=== PATIENT | male | born 1965 | race Caucasian/White ===

== ENCOUNTER 2016-07-29 18:03 | Emergency (ER) | payer OTHER ==
[2016-07-29 19:15] VITALS: BP 139/87
--- NOTE | 2016-07-29 19:31 | UC ---
General HPI - HPI Summary HPI Summary: Patient had an injury at work over the summer, he was evaluated at that point and no fractures or dislocation of the bones noted. he now has had longstanding right sided neck pain. feels his neck cracks frequently. - History of Current Complaint Chief Complaint: UCBackPain Stated Complaint: NECK PAIN Time Seen by Provider: 07/29/16 19:14 Hx Obtained From: Patient Onset/Duration: Gradual Onset, Still Present Timing: Constant Onset Severity: Moderate Current Severity: Moderate Pain Intensity: 6 Pain Location at: right side of neck and posterior neck - Allergy/Home Medications Allergies/Adverse Reactions: Allergies Allergy/AdvReac Type Severity Reaction Status Date / Time No Known Allergies Allergy Verified 07/29/16 19:15 Home Medications: Home Medications Varenicline Tartrate [Chantix Starting M... 0.5 mg X 11 & 1 mg X 42] 1 yadira PO DAILY 07/29/16 [History Confirmed 07/29/16] PMH/Surg Hx/FS Hx/Imm Hx Previously Healthy: Yes Endocrine History Of: Denies: Diabetes Cardiovascular History Of: Denies: Hypertension, Pacemaker/ICD GI/ History Of: Denies: Renal Disease Cancer History Of: Denies: Lung Cancer, Colorectal Cancer, Breast Cancer, Prostate Cancer, Cervical Cancer - Surgical History Surgical History: Yes Surgery Procedure, Year, and Place: left shoulder 2009, [facility] [place],. right knee/femur rodding 1981, , [facility] [facility] APPENDECTOMY, 1977, [facility]. Left Index Finger Tumor Removed, 07/16/12, [facility] [place]. LEFT INDEX FINGER END REMOVED= 07/25/2013 - Family History Known Family History: Positive: Hypertension, Diabetes - Social History Alcohol Use: Occasionally Substance Use Type: None Smoking Status (MU): Heavy Every Day Tobacco Smoker Type: Cigarettes Amount Used/How Often: 1 PPD X 25 YEARS When Did the Patient Quit Smoking/Using Tobacco: 07/2013 Review of Systems Constitutional: Negative Skin: Negative Eyes: Negative ENT: Negative Respiratory: Negative Cardiovascular: Negative Gastrointestinal: Negative Genitourinary: Negative Motor: Negative Neurovascular: Negative Musculoskeletal: Arthralgia, Decreased ROM, Myalgia Neurological: Negative Psychological: Negative All Other Systems Reviewed And Are Negative: Yes Physical Exam Triage Information Reviewed: Yes Appearance: Well-Appearing, Well-Nourished, Pain Distress Vital Signs: Initial Vital Signs Temp 98.2 F 07/29/16 19:11 Pulse 71 07/29/16 19:11 Resp 16 07/29/16 19:11 BP 139/87 07/29/16 19:11 Pulse Ox 97 07/29/16 19:11 Vital Signs Reviewed: Yes Eye Exam: Normal Eyes: Positive: Conjunctiva Clear ENT Exam: Normal ENT: Positive: Normal ENT inspection, Pharynx normal, TMs normal Dental Exam: Normal Neck exam: Normal Neck: Positive: Supple, Nontender, Tenderness @ - right erector spinae and scalenes Respiratory Exam: Normal Respiratory: Positive: Chest non-tender, Lungs clear, Normal breath sounds Cardiovascular Exam: Normal Cardiovascular: Positive: RRR, No Murmur, Pulses Normal Abdominal Exam: Normal Abdomen Description: Positive: Nontender, No Organomegaly, Soft Bowel Sounds: Positive: Present Musculoskeletal Exam: Normal Musculoskeletal: Positive: Strength Intact, ROM Intact, No Edema Neurological Exam: Normal Neurological: Positive: Alert, Muscle Tone Normal Psychological Exam: Normal Skin Exam: Normal Course/Dx - Course Course Of Treatment: hx obtained, exam performed, xray obtained - Differential Dx - Multi-Symptom Provider Diagnoses: chronic neck pain. DJD Discharge - Discharge Plan Condition: Stable Disposition: HOME Prescriptions: Cyclobenzaprine TAB* [Flexeril TAB*] 10 mg PO BEDTIME #30 tab Patient Education Materials: Chronic Neck Pain (GEN) Referrals: Lobito Huertas MD [Primary Care Provider] - Fidel Ernst DC [Doctor of Chiropractic] - Candido Benz DC [Doctor of Chiropractic] - Additional Instructions: I recommend follow up with A massage therpist or physical therapy [facility] to relief the pain in the neck.
--- NOTE | 2016-07-29 20:05 | RAD ---
INDICATION: Chronic neck pain since a fall October 2015 COMPARISON: CT cervical spine November 21, 2015 TECHNIQUE: 3 views of the cervical spine were obtained. FINDINGS: C1-C7 are visualized. Degenerative changes of the cervical spine on the sagittal view images includes loss of intervertebral disc height and anterior marginal osteophyte formation at C6/C7 and C7/T1. No prevertebral soft tissue swelling or fracture is seen. Disc spaces appear maintained. IMPRESSION: Moderate degenerative changes of the cervical spine similar to the appearance of the CT dated November 21, 2015 If the patient's symptoms persist, follow-up imaging is recommended.
== END 2016-07-29 20:20 | disposition home or self-care (01) ==
LOC: UCCORT 18:03
DX: M54.2 Cervicalgia (principal); M50.30 Other cervical disc degeneration, unspecified cervical region; F17.210 Nicotine dependence, cigarettes, uncomplicated
CPT/HCPCS: 72040; 99212; G0463

== ENCOUNTER 2017-11-14 09:08 | Emergency (ER) | payer BC ==
[2017-11-14 09:24] VITALS: BP 140/100
[2017-11-14] MEDS ORDERED: Tetracaine 0.5% OPTH.SOL 4 ML* 1 DROP BTL ONE (09:29)
[2017-11-14] MEDS ORDERED: Fluorescein Sod TOPICAL 0.6* 0.6 MG TEST OPHTHALMIC ONE ×2 (09:29→09:31)
[2017-11-14] MEDS ORDERED: BSS OPTH.SOL* BTL ONE (09:29)
--- NOTE | 2017-11-14 09:44 | UC ---
Eye Complaint HPI - HPI Summary HPI Summary: Had a spark from grinding go into left eye 2 days ago, not wearing safety glasses. Yesterday hit cement block and chip hit the eye. Used an eye flush last night and eye was swollen shut this morning. - History of Current Complaint Chief Complaint: UCEye Stated Complaint: LFT EYE COMPLAINT Time Seen by Provider: 11/14/17 09:30 Hx Obtained From: Patient Onset/Duration: Sudden Onset, Lasting Days - 2, Worse Since - this morning Timing: Constant Severity Initially: Mild Severity Currently: Moderate Pain Intensity: 6 Location of Injury: Conjunctiva, Eye Lid (lower) Character: Dull Aggravating Factor(s): Blinking Alleviating Factor(s): Nothing Associated Signs And Symptoms: Positive: Swelling - Risk Factors Penetrating Injury Risk Factor: Hammering, Grinding - Allergies/Home Medications Allergies/Adverse Reactions: Allergies Allergy/AdvReac Type Severity Reaction Status Date / Time No Known Allergies Allergy Verified 11/14/17 09:18 PMH/Surg Hx/FS Hx/Imm Hx Previously Healthy: Yes - Surgical History Surgical History: Yes Surgery Procedure, Year, and Place: left shoulder 2009, [facility] [place],. right knee/femur rodding 1981, , [facility]. APPENDECTOMY, 1977, [facility]. Left Index Finger Tumor Removed, 07/16/12, [facility] [place]. LEFT INDEX FINGER END REMOVED= 07/25/2013. [facility] - Family History Known Family History: Positive: Hypertension, Diabetes - Social History Occupation: Employed Full-time Lives: With Family Alcohol Use: Occasionally Substance Use Type: None Smoking Status (MU): Heavy Every Day Tobacco Smoker Type: Cigarettes Amount Used/How Often: 1/2 PPD X 25 YEARS Have You Smoked in the Last Year: No When Did the Patient Quit Smoking/Using Tobacco: 07/2013 Review of Systems Eyes: Eye Redness Is Patient Immunocompromised?: No All Other Systems Reviewed And Are Negative: Yes Physical Exam Triage Information Reviewed: Yes Appearance: Well-Appearing, Well-Nourished, Pain Distress - mild Vital Signs: Initial Vital Signs Temp 98.3 F 11/14/17 09:19 Pulse 64 11/14/17 09:19 Resp 18 11/14/17 09:19 BP 140/100 11/14/17 09:19 Pulse Ox 97 11/14/17 09:19 Vital Signs Reviewed: Yes Eyes: Positive: Conjunctiva Inflamed - OS, Other: - left lower lid swollen, red , tender medially. ENT: Positive: Pharynx normal, TMs normal Neck exam: Normal Respiratory Exam: Normal Cardiovascular Exam: Normal Musculoskeletal Exam: Normal Neurological Exam: Normal Psychological Exam: Normal Skin: Positive: Other - erythema with swelling down the left cheek Eye Complaint Course/Dx - Differential Dx/Diagnosis Differential Diagnosis/HQI/PQRI: Conjunctivitis, Corneal Abrasion, Periorbital Cellulitis Provider Diagnoses: Left lower eyelid hordoleum. Cellulitis face Discharge - Sign-Out/Discharge Documenting (check all that apply): Discharge - Discharge Plan Condition: Stable Disposition: HOME Prescriptions: Cephalexin CAP* [Keflex 500 CAP*] 500 mg PO QID #28 cap Erythromycin OPTH OINT* [Erythromycin 0.5% OPTH OINT*] 0.25 inch LEFT EYE TID # 1 tube Patient Education Materials: Stye (ED), Cellulitis (ED) Referrals: Lobito Huertas MD [Primary Care Provider] - Additional Instructions: Smoking Cessation Tricks. 1. Cut down by 1 cigarette per day every 2-3 days. Write the number of smokes for that day on the calendar. 2. Identify triggers to smoking: after meals, on the phone, in the car, with coffee, on breaks at work, etc. 3. Formulate a plan with a behavior to replace the smoking. Fireballs in the car , doodle pad on the phone, flavored creamer for the coffee, go for a walk after a meal or on break at work. 4. For stress smokes do deep breathing relaxation. Breath deep in through the nose hold the breath in for a few seconds then breath out slowly through the mouth. EYE OINTMENT USE: Wash hands. Place 1/4" strip across tip of finger. Pull lower lid down with the index finger and stabilize the ointment finger with the middle finger and scrape the ointment off on the lid. Pull the lid out and let go as you look down. - Billing Disposition and Condition Condition: STABLE Disposition: HOME
== END 2017-11-14 09:58 | disposition home or self-care (01) ==
LOC: UCCORT 09:08
DX: S05.02XA Injury of conjunctiva and corneal abrasion without foreign body, left eye, initial encounter (principal); L03.213 Periorbital cellulitis; W20.8XXA Other cause of strike by thrown, projected or falling object, initial encounter; Y93.89 Activity, other specified; Y92.9 Unspecified place or not applicable; Z87.891 Personal history of nicotine dependence; H10.9 Unspecified conjunctivitis
CPT/HCPCS: 99212; A9270-GY; G0463

== ENCOUNTER 2018-04-25 15:00 | Emergency (ER) | payer BC ==
--- OUTSIDE RECORDS SUMMARY | 2018-04-25 16:28 | XMS REPORT | Continuity of Care Document ---
:1965 External Reference #:[id number] Author Name Lobito Huertas M.D. 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 Active Onset: 07/10/2015 Pain in limb Lobito Huertas M.D. Active Onset: 07/10/2015 Arthralgia of the ankle and/or foot Lobito Huertas M.D. Active Onset: 07/10/2015 Atopic dermatitis Lobito Huertas M.D. Active Onset: 07/10/2015 Allergic rhinitis Lobito Huertas M.D. Active Onset: 07/10/2015 Chronic obstructive lung disease Lobito Huertas M.D. Active Onset: 07/10/2015 Low back pain Lobito Huertas M.D. Active Onset: 07/10/2015 Tobacco user Lobito Huertas M.D. Active Onset: 07/10/2015 Hearing loss Lobito Huertas M.D. Active Family History Date Family Member(s) Problem(s) Comments Father due to Lung Cancer () - AT AGE 74 Mother due to COPD () - AT AGE 76 First Daughter 20 First Daughter No Current Problems Second Daughter 31 Second Daughter No Current Problems Third Daughter 33 Third Daughter No Current Problems First Brother 56 First Brother No Current Problems Second Brother 42 Second Brother No Current Problems First Sister 57 First Sister No Current Problems Second Sister 56 Second Sister No Current Problems Third Sister 54 Third Sister No Current Problems Fourth Sister Heart Issues Fourth Sister 43 Social History Type Date Description Comments Sex Unknown Marital Status Legal Status: ETOH Use Rarely consumes alcohol Tobacco Use Start: Unknown Patient is a current 1 TO 1 1/2 PACKS A DAY smoker, smokes every day Smoking Status Reviewed: 04/14/18 Patient is a current 1 TO 1 1/2 PACKS A DAY smoker, smokes every day Allergies, Adverse Reactions, Alerts Description No Known Drug Allergies Medications Medication Date Status Form Strength Qnty SIG Indications Ordering Provider Viagra Active Tablets 100mg 10tabs 1 tab by J44.9 Lobito Huertas 8 mouth M., M.DRose Mary every day as needed Ibuprofen Active Tablets 800mg 90tabs 1 by mouth M79.604 Lobito Huertas 7 three M., M.D. times a day as needed M25.569 M54.5 Betamethasone 08/31/2015 Active Cream 0.05% 45gm apply to L20.9 Aleksandar Dipropionate affected Lobito Villegas, area three M.D. times a day as needed Hydrocodone-Acet 07/10/2015 Active Tablets 10-325mg 120tabs 1 tab by M79.604 Aleksandar aminophen mouth four Lobito Villegas, times a day M.D. as needed M25.569 M54.5 Prednisone 02/16/20 Hx Tablets 20mg 8tabs 2 tab by mouth J44.9 David Huertasmad 18 - daily 4 days M., M.D. 02/19/20 18 Ciprofloxacin HCL 12/12/19 Hx Tablets 500mg 14tabs 1 by mouth E78.2 Aleksandar, Ahmad 18 - twice a day M., M.D. 12/19/19 18 Chantix 12/12/19 Hx Tablets 1mg 60tabs 1 by mouth F17.210 Aleksandar, Ahmad 18 - twice a day M., M.D. 04/13/20 18 Amoxicillin 09/08/19 Hx Tablets 500mg 40tabs 2 by mouth J44.9 Aleksandar, Ahmad 18 - twice a day M., M.D. 09/18/19 18 Prednisone 09/08/19 Hx Tablets 20mg 8tabs 2 tab by mouth J44.9 Aleksandar, Ahmad 18 - daily 4 days M., M.D. 09/11/19 18 Chantix 08/04/19 Hx Tablets 1mg 60tabs 1 by mouth F17.210 Aleksandar, Ahmad 18 - twice a day M., M.D. 10/03/19 18 Cialis 05/12/20 Hx Tablets 20mg 6tabs 1 tab by mouth J44.9 Aleksandar, Ahmad 17 - every day as M., M.D. 11/18/19 needed 18 Prednisone 05/12/20 Hx Tablets 20mg 18tabs 3 tab by mouth M50.30 Aleksandar , Ahmad 17 - daily 3 days, M., M.D. 05/20/20 then 2 tab 17 daily x 3 d , then 1 tab daily 3d Viagra 01/24/20 Hx Tablets 100mg 5tabs 1 tab by mouth M25.571 Aleksandar, Ahmad 17 - every day as M., M.D. 05/12/20 needed 17 Prednisone 09/30/19 Hx Tablets 20mg 18tabs 3 tab by mouth M50.30 Aleksandar , Ahmad 17 - daily 3 days, M., M.D. 02/01/20 then 2 tab 17 daily x 3 d , then 1 tab daily 3d M54.12 Prednisone 08/07/2016 - Hx Tablets 20mg 18tabs 3 tab by M50.30 Aleksandar, 08/16/2016 mouth daily Ahmad M., 3 days, M.D. then 2 tab daily x 3 d , then 1 tab daily 3d Bacitracin 04/15/2016 - Hx Ointment 500Unit apply to S60.451A [facility], (External) 04/22/2016 /GM affected Ahmad M., area three M.D. times a day as needed till healed Prednisone 03/07/2016 - Hx Tablets 20mg 18tabs 3 tab by M50.30 [facility], 03/16/2016 mouth daily Ahmad M., 3 days, M.D. then 2 tab daily x 3 d , then 1 tab daily 3d Prednisone 10/18/2015 - Hx Tablets 20mg 18tabs 3 tab by M25.569 [facility], 10/25/2015 mouth daily Ahmad M., 3 days, M.D. then 2 tab daily x 3 d , then 1 tab daily 3d Hydrocodone-Acet 07/10/2015 - Hx Tablets 10-325m 60tabs 1-2 tab by [facility], aminophen 07/10/2015 g mouth every Ahmad M., 4 hours as M.D. needed Chantix 07/10/2015 - Hx Tablets 1mg 60tabs 1 by mouth F17.210 [facility], 04/26/2017 twice a day Ahmad M., M.D. Hydrocodone-Acet - Hx Tablets 5-325mg Unknown aminophen 07/10/2015 Naproxen - Hx Tablets 500mg Unknown 07/01/2015 Levofloxacin - Hx Tablets 750mg Unknown 07/02/2015 Tramadol HCL - Hx Tablets 50mg Unknown 06/26/2015 Immunizations CPT Code Status Date Vaccine Lot # [id number] Refused 07/10/2015 Flu Vaccine Vital Signs Date Vital Result Comment 04/15/2018 8:32am BP Systolic 146 mmHg BP Diastolic 78 mmHg Height 67 inches 5'7" Weight 176.00 lb BMI (Body Mass Index) 27.6 kg/m2 Heart Rate 68 /min Respiratory Rate 16 /min 03/16/2018 11:01am BP Systolic 130 mmHg BP Diastolic 70 mmHg Height 67 inches 5'7" Weight 182.00 lb BMI (Body Mass Index) 28.5 kg/m2 02/15/2018 3:27pm BP Systolic 124 mmHg BP Diastolic 60 mmHg Height 67 inches 5'7" Weight 181.00 lb BMI (Body Mass Index) 28.3 kg/m2 Heart Rate 79 /min Respiratory Rate 16 /min 01/15/2018 8:26am BP Systolic 132 mmHg BP Diastolic 70 mmHg Height 67 inches 5'7" Weight 183.00 lb BMI (Body Mass Index) 28.7 kg/m2 Heart Rate 72 /min Respiratory Rate 16 /min 12/11/2017 8:07am BP Systolic 126 mmHg BP Diastolic 80 mmHg Height 67 inches 5'7" Weight 186.00 lb BMI (Body Mass Index) 29.1 kg/m2 Heart Rate 73 /min Respiratory Rate 18 /min 11/17/2017 4:08pm BP Systolic 150 mmHg BP Diastolic 88 mmHg Height 67 inches 5'7" Weight 188.00 lb BMI (Body Mass Index) 29.4 kg/m2 Heart Rate 74 /min Respiratory Rate 18 /min 10/05/2017 9:23am BP Systolic 134 mmHg BP Diastolic 84 mmHg Height 67 inches 5'7" Weight 191.00 lb BMI (Body Mass Index) 29.9 kg/m2 Heart Rate 82 /min Respiratory Rate 18 /min 09/08/2017 4:11pm BP Systolic 128 mmHg BP Diastolic 82 mmHg Height 67 inches 5'7" Weight 191.00 lb BMI (Body Mass Index) 29.9 kg/m2 Heart Rate 78 /min Respiratory Rate 18 /min 08/04/2017 9:08am BP Systolic 130 mmHg BP Diastolic 79 mmHg Height 67 inches 5'7" Weight 187.00 lb BMI (Body Mass Index) 29.3 kg/m2 Heart Rate 59 /min Respiratory Rate 18 /min 07/03/2017 3:58pm BP Systolic 138 mmHg BP Diastolic 72 mmHg Height 67 inches 5'7" Weight 187.00 lb BMI (Body Mass Index) 29.3 kg/m2 Heart Rate 91 /min Respiratory Rate 18 /min 06/05/2017 3:14pm BP Systolic 150 mmHg BP Diastolic 72 mmHg Height 67 inches 5'7" Weight 176.00 lb BMI (Body Mass Index) 27.6 kg/m2 Heart Rate 72 /min Respiratory Rate 18 /min 05/12/2017 4:10pm BP Systolic 144 mmHg BP Diastolic 72 mmHg Height 67 inches 5'7" Weight 176.00 lb BMI (Body Mass Index) 27.6 kg/m2 Heart Rate 64 /min Respiratory Rate 18 /min 04/29/2017 11:38am BP Systolic 136 mmHg BP Diastolic 70 mmHg Height 67 inches 5'7" Weight 178.00 lb BMI (Body Mass Index) 27.9 kg/m2 Heart Rate 70 /min Respiratory Rate 16 /min 04/16/2017 4:32pm BP Systolic 128 mmHg BP Diastolic 68 mmHg Height 67 inches 5'7" Weight 180.00 lb BMI (Body Mass Index) 28.2 kg/m2 Heart Rate 80 /min Respiratory Rate 16 /min 04/03/2017 8:52am BP Systolic 130 mmHg BP Diastolic 80 mmHg Height 67 inches 5'7" Weight 180.00 lb BMI (Body Mass Index) 28.2 kg/m2 Heart Rate 78 /min Respiratory Rate 16 /min 03/18/2017 4:24pm BP Systolic 138 mmHg BP Diastolic 68 mmHg Height 67 inches 5'7" Weight 180.00 lb BMI (Body Mass Index) 28.2 kg/m2 Heart Rate 78 /min Respiratory Rate 16 /min 03/05/2017 8:35am BP Systolic 140 mmHg BP Diastolic 76 mmHg Height 67 inches 5'7" Weight 181.00 lb BMI (Body Mass Index) 28.3 kg/m2 Heart Rate 86 /min Respiratory Rate 16 /min 02/20/2017 4:47pm Height 67 inches 5'7" 02/05/2017 4:26pm BP Systolic 138 mmHg BP Diastolic 70 mmHg Height 67 inches 5'7" Weight 183.00 lb BMI (Body Mass Index) 28.7 kg/m2 Heart Rate 68 /min Respiratory Rate 16 /min 01/23/2017 4:12pm BP Systolic 150 mmHg BP Diastolic 78 mmHg Height 67 inches 5'7" Weight 182.00 lb BMI (Body Mass Index) 28.5 kg/m2 Heart Rate 68 /min Respiratory Rate 16 /min 12/26/2016 4:00pm BP Systolic 130 mmHg BP Diastolic 76 mmHg Height 67 inches 5'7" Weight 166.00 lb BMI (Body Mass Index) 26.0 kg/m2 Heart Rate 86 /min Respiratory Rate 16 /min 12/03/2016 4:33pm BP Systolic 140 mmHg BP Diastolic 84 mmHg Height 67 inches 5'7" Weight 165.00 lb BMI (Body Mass Index) 25.8 kg/m2 Heart Rate 87 /min Respiratory Rate 16 /min 11/04/2016 3:52pm BP Systolic 128 mmHg BP Diastolic 72 mmHg Height 67 inches 5'7" Weight 177.00 lb BMI (Body Mass Index) 27.7 kg/m2 Heart Rate 62 /min Respiratory Rate 18 /min 09/29/2016 3:35pm BP Systolic 136 mmHg BP Diastolic 78 mmHg Height 67 inches 5'7" Weight 176.00 lb BMI (Body Mass Index) 27.6 kg/m2 Heart Rate 67 /min Respiratory Rate 16 /min 09/05/2016 1:59pm BP Systolic 118 mmHg BP Diastolic 78 mmHg Height 67 inches 5'7" Weight 174.00 lb BMI (Body Mass Index) 27.2 kg/m2 Heart Rate 85 /min Respiratory Rate 18 /min 08/07/2016 4:34pm BP Systolic 110 mmHg BP Diastolic 70 mmHg Height 67 inches 5'7" Weight 168.00 lb BMI (Body Mass Index) 26.3 kg/m2 Heart Rate 130 /min Respiratory Rate 18 /min 06/24/2016 4:26pm BP Systolic 13 mmHg BP Diastolic 70 mmHg Height 67 inches 5'7" Weight 165.00 lb BMI (Body Mass Index) 25.8 kg/m2 Heart Rate 82 /min Respiratory Rate 18 /min 05/14/2016 4:23pm BP Systolic 132 mmHg BP Diastolic 80 mmHg Height 67 inches 5'7" Weight 160.00 lb BMI (Body Mass Index) 25.1 kg/m2 Heart Rate 68 /min Respiratory Rate 18 /min 04/15/2016 9:52am BP Systolic 122 mmHg BP Diastolic 64 mmHg Height 67 inches 5'7" Weight 167.00 lb BMI (Body Mass Index) 26.2 kg/m2 Heart Rate 78 /min Respiratory Rate 20 /min 03/07/2016 4:25pm BP Systolic 130 mmHg BP Diastolic 68 mmHg Height 67 inches 5'7" Weight 170.00 lb BMI (Body Mass Index) 26.6 kg/m2 Heart Rate 84 /min Respiratory Rate 20 /min 02/01/2016 3:00pm BP Systolic 142 mmHg BP Diastolic 82 mmHg Height 67 inches 5'7" Weight 168.00 lb BMI (Body Mass Index) 26.3 kg/m2 Heart Rate 78 /min Respiratory Rate 18 /min 01/01/2016 4:31pm BP Systolic 130 mmHg BP Diastolic 78 mmHg Height 67 inches 5'7" Weight 176.00 lb BMI (Body Mass Index) 27.6 kg/m2 Heart Rate 72 /min Respiratory Rate 18 /min 10/18/2015 2:43pm BP Systolic 130 mmHg BP Diastolic 81 mmHg Height 67 inches 5'7" Weight 180.00 lb BMI (Body Mass Index) 28.2 kg/m2 Heart Rate 65 /min Respiratory Rate 18 /min 08/31/2015 3:11pm BP Systolic 113 mmHg BP Diastolic 68 mmHg Height 67 inches 5'7" Weight 172.00 lb BMI (Body Mass Index) 26.9 kg/m2 Heart Rate 64 /min Respiratory Rate 18 /min 07/23/2015 3:00pm BP Systolic 132 mmHg BP Diastolic 83 mmHg Height 67 inches 5'7" Weight 165.00 lb BMI (Body Mass Index) 25.8 kg/m2 Heart Rate 65 /min Respiratory Rate 18 /min 07/10/2015 2:37pm BP Systolic 137 mmHg BP Diastolic 76 mmHg Height 67 inches 5'7" Weight 166.00 lb BMI (Body Mass Index) 26.0 kg/m2 Heart Rate 68 /min Body Temperature 96.3 F Respiratory Rate 20 /min Results Test Date Facility Test Result H/L Range Note Laboratory test 04/15/2018 [facility] TSH, Ultrasenstive <pending> finding 113 [employer] [place] (607)- - Vitamin D 25 Hydroxy <pending> Laboratory test 10/18/2015 [facility] Surgical SEE RESULT 1 finding Pathology BELOW CBC Auto Diff 07/23/2015 [facility] White Blood Count 6.5 10^3/uL 3.5-10. 8 Red Blood Count 4.96 10^6/uL 4.0-5.4 Hemoglobin 14.9 g/dL 14.0-18.0 Hematocrit 45 % 42-52 Mean Corpuscular Volume 91 fL 80-94 Mean Corpuscular Hemoglobin 30 pg 27-31 Mean Corpuscular HGB Conc 33 g/dL 31-36 Red Cell Distribution Width 14 % 10.5-15 Platelet Count 318 10^3/uL 150-450 Mean Platelet Volume 7 um3 Low 7.4-10.4 Abs Neutrophils 3.6 10^3/uL 1.5-7.7 Abs Lymphocytes 2.1 10^3/uL 1.0-4.8 Abs Monocytes 0.5 10^3/uL 0-0.8 Abs Eosinophils 0.2 10^3/uL 0-0.6 Abs Basophils 0.1 10^3/uL 0-0.2 Abs Nucleated RBC 0 10^3/uL Granulocyte % 55.7 % 38-83 Lymphocyte % 32.5 % 25-47 Monocyte % 7.5 % 1-9 Eosinophil % 3.4 % 0-6 Basophil % 0.9 % 0-2 Nucleated Red Blood Cells % 0 Comp Metabolic Panel 07/23/2015 [facility] Sodium 136 mmol/L 133- 145 Potassium 4.3 mmol/L 3.5-5.0 Chloride 101 mmol/L 101-111 Co2 Carbon Dioxide 30 mmol/L 22-32 Anion Gap 5 mmol/L 2-11 Glucose 75 mg/dL 70-100 Blood Urea Nitrogen 12 mg/dL 6-24 Creatinine 0.79 mg/dL 0.67-1.17 BUN/Creatinine Ratio 15.2 8-20 Calcium 9.6 mg/dL 8.6-10.3 Total Protein 6.6 g/dL 6.4-8.9 Albumin 4.3 g/dL 3.2-5.2 Globulin 2.3 g/dL 2-4 Albumin/Globulin Ratio 1.9 1-3 Total Bilirubin 0.40 mg/dL 0.2-1.0 Alkaline Phosphatase 69 U/L 34-104 Alt 17 U/L 7-52 Ast 21 U/L 13-39 Egfr Non- 103.0 >60 Egfr 132.5 >60 2 Lipid Profile (Trig/Chol/HDL) 07/23/2015 [facility] Triglycerides 76 mg /dL 3 Cholesterol 201 mg/dL 4 HDL Cholesterol 52.0 mg/dL 5 LDL Cholesterol 134 mg/dL 6 Laboratory test 07/23/2015 [facility] Vitamin D Total 30.3 ng/mL 30- 50 finding 25(Oh) Erythrocyte Sed Rate 13 mm/Hr 0-20 TSH (Thyroid Stim Horm) 1.24 ?IU/mL 0.34-5.60 1 SEE RESULT BELOW Name: SARAH CARDOSO JR : [address]: Mervin Olvera MD Acct: [id number] Unit: [id number] AGE: 50 Location: [facility] Re10/18/15 SEX: M Status: REG REF SPEC: [id number] EMILY: 10/18/150844 [facility] DR: Mervin Olvera MD REQ: [id number] RECD: 10/18/15 STATUS: DIGNA [place] DR: Lobito Huertas MD _ ORDERED: LEVEL IV/3 FINAL DIAGNOSIS 1. Colon, cecal valve, biopsy: -- Benign colonic mucosa with surface hyperplastic change. 2. Colon, at 25 cm, biopsy: -- Hyperplastic polyp. 3. Colon, at 20 cm, biopsy: -- Hyperplastic polyps. CLINICAL HISTORY Screening POST-OPERATIVE DIAGNOSIS Colonoscopy to terminal ileum - biopsy at 25 cm., 30 cm. and ileocecal valve ; 5 years GROSS DESCRIPTION 1. The specimen is received in formalin labeled, Cecal Valve Polyp, and consists of two price-pink irregular soft tissue fragments measuring 0.3 x 0.1 x 0.1 cm and 0.3 x 0.3 x 0.3 cm, which are submitted entirely in one cassette. 2. The specimen is received in formalin labeled, Colon Polyp at 25 cm, and consists of two price-pink irregular soft tissue fragments measuring 0.3 x 0.2 x 0.1 cm and 0.3 x 0.3 x 0.3 cm, which are submitted entirely in one cassette. 3. The specimen is received in formalin labeled, Colon Polyps at 20 cm, and consists of a 0.8 x 0.8 x 0.2 cm aggregate of price-pink irregular to polypoid soft tissue fragments, which is submitted entirely in one cassette. CONTINUED ON NEXT PAGE * ML=Testing performed at Main Lab DEPARTMENT OF PATHOLOGY, [address] [place] [address] Pineda Laws M.D. Director XIMENA # [id number] RUN DATE: 10/19/15 [facility] LAB LIVE PAGE 2 Patient: SARAH CARDOSO JR [id number] (Continued) GROSS DESCRIPTION (Continued) Signed (signature on file) Rachel Werner MD 1506 END OF REPORT * ML=Testing performed at Main Lab DEPARTMENT OF PATHOLOGY, [address] [place] [address] Pineda Laws M.D. Director XIME[facility] # [id number] 2 Because ethnic data is not always readily available, this report includes an eGFR for both -Americans and non- Americans. The National Kidney Disease Education Program (NKDEP) does not endorse the use of the MDRD equation for patients that are not between the ages of 18 and 70, are , have extremes of body size, muscle mass, or nutritional status, or are non- or non-. According to the National Kidney Foundation, irrespective of diagnosis, the stage of the disease is based on the level of kidney function: Stage Description GFR(mL/min/1.73 m(2)) 1 Kidney damage with normal or decreased GFR 90 2 Kidney damage with mild decrease in GFR 60-89 3 Moderate decrease in GFR 30-59 4 Severe decrease in GFR 15-29 5 Kidney failure <15 (or dialysis) 3 Desirable <150 Borderline high 150-199 High 200-499 Very High >500 4 Desirable <200 Borderline high 200-239 High >239 5 Low <40 Desirable: 40-60 High: >60 6 Desirable: <100 mg/dL Near Optimal: 100-129 mg/dL Borderline High: 130-159 mg/dL High: 160-189 mg/dL Very High: >189 mg/dL Procedures Date Code Description Status 04/15/2018 47485 Visual Screening Test Completed 04/15/2018 05039 EKG Completed 04/15/2018 09663 Audiometry, Bekesy, Screening Completed 07/10/2015 60163 Visual Screening Test Completed 07/10/2015 29063 EKG Completed 07/10/2015 71386 Audiometry, Bekesy, Screening Completed Encounters Type Date Location Provider Dx Diagnosis Office Visit 04/15/2018 [facility] Lobito Huertas, E78.2 Mixed hyperlipidemia 8:30a M.D. J44.9 Chronic obstructive pulmonary disease, unspecified L20.9 Atopic dermatitis, unspecified J30.9 Allergic rhinitis, unspecified M50.30 Other cervical disc degeneration, unsp cervical region M54.12 Radiculopathy, cervical region M54.5 Low back pain M79.604 Pain in right leg M25.571 Pain in right ankle and joints of right foot F17.210 Nicotine dependence, cigarettes, uncomplicated H90.3 Sensorineural hearing loss, bilateral H52.4 Presbyopia N52.9 Male erectile dysfunction, unspecified Z79.891 intermediate (current) use of opiate analgesic E55.9 Vitamin D deficiency, unspecified Z00.01 Encounter for general adult medical exam w abnormal findings Office Visit 03/16/2018 11:00a [facility] AleksandarLobito campbell E78.2 Mixed hyperlipidemia Jules Villegas J44.9 Chronic obstructive pulmonary disease, unspecified L20.9 Atopic dermatitis, unspecified J30.9 Allergic rhinitis, unspecified M50.30 Other cervical disc degeneration, unsp cervical region M54.12 Radiculopathy, cervical region M54.5 Low back pain M79.604 Pain in right leg M25.571 Pain in right ankle and joints of right foot F17.210 Nicotine dependence, cigarettes, uncomplicated H90.3 Sensorineural hearing loss, bilateral H52.4 Presbyopia N52.9 Male erectile dysfunction, unspecified Z79.891 intermediate (current) use of opiate analgesic Office Visit 02/15/2018 3:15p [facility] Jonathon Benz J44.9 Chronic obstructive N.P. 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 pulmonary disease, unspecified F17.210 Nicotine dependence, cigarettes, uncomplicated M54.5 Low back pain M79.604 Pain in right leg M25.571 Pain in right ankle and joints of right foot L20.9 Atopic dermatitis, unspecified J30.9 Allergic rhinitis, unspecified H90.3 Sensorineural hearing loss, bilateral H52.4 Presbyopia E78.2 Mixed hyperlipidemia N52.9 Male erectile dysfunction, unspecified M50.30 Other cervical disc degeneration, unsp cervical region M54.12 Radiculopathy, cervical region Z79.891 intermediate (current) use of opiate analgesic H00.015 Hordeolum externum left lower eyelid A09 Infectious gastroenteritis and colitis, unspecified R19.7 Diarrhea, unspecified Office Visit 12/11/2017 8:00a [facility] Lobito Huertas J44.9 Chronic obstructive M., M.D. pulmonary disease, unspecified F17.210 Nicotine dependence, cigarettes, uncomplicated M54.5 Low back pain M79.604 Pain in right leg M25.571 Pain in right ankle and joints of right foot L20.9 Atopic dermatitis, unspecified J30.9 Allergic rhinitis, unspecified H90.3 Sensorineural hearing loss, bilateral H52.4 Presbyopia E78.2 Mixed hyperlipidemia N52.9 Male erectile dysfunction, unspecified M50.30 Other cervical disc degeneration, unsp cervical region M54.12 Radiculopathy, cervical region Z79.891 intermediate (current) use of opiate analgesic H00.015 Hordeolum externum left lower eyelid A09 Infectious gastroenteritis and colitis, unspecified R19.7 Diarrhea, unspecified Office Visit 11/17/2017 4:00p [facility] Lobito Huertas J44.9 Chronic obstructive M., M.D. 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 pulmonary disease, unspecified F17.210 Nicotine dependence, cigarettes, uncomplicated M54.5 Low back pain M79.604 Pain in right leg M25.571 Pain in right ankle and joints of right foot L20.9 Atopic dermatitis, unspecified J30.9 Allergic rhinitis, unspecified H90.3 Sensorineural hearing loss, bilateral H52.4 Presbyopia E78.2 Mixed hyperlipidemia N52.9 Male erectile dysfunction, unspecified M50.30 Other cervical disc degeneration, unsp cervical region M54.12 Radiculopathy, cervical region Z79.891 intermediate (current) use of opiate analgesic J20.9 Acute bronchitis, unspecified J01.40 Acute pansinusitis, unspecified Office Visit 08/04/2017 9:00a [facility] Lobito Huertas J44.9 Chronic obstructive M., MRose MaryD. 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 pulmonary disease, unspecified F17.210 Nicotine dependence, cigarettes, uncomplicated Z79.891 intermediate (current) use of opiate analgesic M54.5 Low back pain M79.604 Pain in right leg M25.571 Pain in right ankle and joints of right foot L20.9 Atopic dermatitis, unspecified J30.9 Allergic rhinitis, unspecified H90.3 Sensorineural hearing loss, bilateral H52.4 Presbyopia E78.2 Mixed hyperlipidemia N52.9 Male erectile dysfunction, unspecified M50.30 Other cervical disc degeneration, unsp cervical region M54.12 Radiculopathy, cervical region Office Visit 05/12/2017 4:15p [facility] Aleksandar Davidadonis M50.30 Other cervical disc M., M.D. degeneration, unsp cervical region M54.12 Radiculopathy, cervical region J44.9 Chronic obstructive pulmonary disease, unspecified F17.210 Nicotine dependence, cigarettes, uncomplicated Z79.891 intermediate (current) use of opiate analgesic M54.5 Low back pain M79.604 Pain in right leg M25.571 Pain in right ankle and joints of right foot L20.9 Atopic dermatitis, unspecified J30.9 Allergic rhinitis, unspecified H90.3 Sensorineural hearing loss, bilateral H52.4 Presbyopia E78.2 Mixed hyperlipidemia N52.9 Male erectile dysfunction, unspecified [facility].30 Other cervical disc M.D. 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 degeneration, unsp cervical region M54.12 Radiculopathy, cervical region J44.9 Chronic obstructive pulmonary disease, unspecified F17.210 Nicotine dependence, cigarettes, uncomplicated Z79.891 intermediate (current) use of opiate analgesic M54.5 Low back pain M79.604 Pain in right leg M25.571 Pain in right ankle and joints of right foot L20.9 Atopic dermatitis, unspecified J30.9 Allergic rhinitis, unspecified H90.3 Sensorineural hearing loss, bilateral H52.4 Presbyopia E78.2 Mixed hyperlipidemia N52.9 Male erectile dysfunction, unspecified Office Visit [facility]2017 [facility] M[facility].30 Other cervical disc M., M.D. 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 degeneration, unsp cervical region M54.12 Radiculopathy, cervical region J44.9 Chronic obstructive pulmonary disease, unspecified F17.210 Nicotine dependence, cigarettes, uncomplicated Z79.891 intermediate (current) use of opiate analgesic M54.5 Low back pain M79.604 Pain in right leg M25.571 Pain in right ankle and joints of right foot L20.9 Atopic dermatitis, unspecified J30.9 Allergic rhinitis, unspecified H90.3 Sensorineural hearing loss, bilateral H52.4 Presbyopia E78.2 Mixed hyperlipidemia N52.9 Male erectile dysfunction, unspecified Office Visit 03/05/2017 8:30a [facility] Lobito Huertas M50.30 Other cervical disc M., M.D. 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 M54.5 Low back pain M79.604 Pain in right leg M25.571 Pain in right ankle and joints of right foot L20.9 Atopic dermatitis, unspecified J30.9 Allergic rhinitis, unspecified H90.3 Sensorineural hearing loss, bilateral H52.4 Presbyopia E78.2 Mixed hyperlipidemia N52.9 Male erectile dysfunction, unspecified Office Visit 02/20/2017 5:00p Manjinder Perry BOND MANAGER M50.30 Other cervical disc 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 degeneration, unsp cervical region M54.12 Radiculopathy, cervical region J44.9 Chronic obstructive pulmonary disease, unspecified F17.210 Nicotine dependence, cigarettes, uncomplicated Z79.891 intermediate (current) use of opiate analgesic M54.5 Low back pain M79.604 Pain in right leg M25.571 Pain in right ankle and joints of right foot L20.9 Atopic dermatitis, unspecified J30.9 Allergic rhinitis, unspecified H90.3 Sensorineural hearing loss, bilateral H52.4 Presbyopia E78.2 Mixed hyperlipidemia N52.9 Male erectile dysfunction, unspecified Office Visit 01/23/2017 4:15p [facility] Aleksandar, Davidadonis M50.30 Other cervical disc M.BakariD. 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 degeneration, unsp cervical region M54.12 Radiculopathy, cervical region J44.9 Chronic obstructive pulmonary disease, unspecified F17.210 Nicotine dependence, cigarettes, uncomplicated Z79.891 intermediate (current) use of opiate analgesic M54.5 Low back pain M79.604 Pain in right leg M25.571 Pain in right ankle and joints of right foot L20.9 Atopic dermatitis, unspecified J30.9 Allergic rhinitis, unspecified H90.3 Sensorineural hearing loss, bilateral H52.4 Presbyopia E78.2 Mixed hyperlipidemia Office Visit 12/03/2016 4:15p [facility] Manjinder Miranda M50.30 Other cervical disc BOND MANAGER degeneration, unsp cervical region M54.12 Radiculopathy, cervical region J44.9 Chronic obstructive pulmonary disease, unspecified F17.210 Nicotine dependence, cigarettes, uncomplicated Z79.891 intermediate (current) use of opiate analgesic Office Visit 11/04/2016 3:45p [facility] Lobito Huertas M50.30 Other cervical disc M., M.D. degeneration, unsp cervical region M54.12 Radiculopathy, cervical region J44.9 Chronic obstructive pulmonary disease, unspecified M54.5 Low back pain M79.604 Pain in right leg M25.571 Pain in right ankle and joints of right foot L20.9 Atopic dermatitis, unspecified J30.9 Allergic rhinitis, unspecified F17.210 Nicotine dependence, cigarettes, uncomplicated H90.3 Sensorineural hearing loss, bilateral H52.4 Presbyopia E78.2 Mixed hyperlipidemia Office Visit 09/29/2016 3:30p [facility] Manjinder Miranda F17.210 Nicotine dependence, BOND MANAGER cigarettes, uncomplicated M50.121 Cervical disc disorder at C4-C5 level with radiculopathy Office Visit 09/05/2016 2:00p [facility] Lobito Huertas M25.569 Pain in M., M.D. unspecified knee J44.9 Chronic obstructive pulmonary disease, unspecified M54.5 Low back pain M79.604 Pain in right leg F17.210 Nicotine dependence, cigarettes, uncomplicated M25.571 Pain in right ankle and joints of right foot L20.9 Atopic dermatitis, unspecified J30.9 Allergic rhinitis, unspecified R06.02 Shortness of breath H90.3 Sensorineural hearing loss, bilateral H52.4 Presbyopia E78.2 Mixed hyperlipidemia M50.30 Other cervical disc degeneration, unsp cervical region Office Visit 08/07/2016 4:15p [facility] Lobito Huertas M25.569 Pain in M., M.D. unspecified knee J44.9 Chronic obstructive pulmonary disease, unspecified M54.5 Low back pain M79.604 Pain in right leg F17.210 Nicotine dependence, cigarettes, uncomplicated M25.571 Pain in right ankle and joints of right foot L20.9 Atopic dermatitis, unspecified J30.9 Allergic rhinitis, unspecified R06.02 Shortness of breath H90.3 Sensorineural hearing loss, bilateral H52.4 Presbyopia E78.2 Mixed hyperlipidemia M50.30 Other cervical disc degeneration, unsp cervical region Office Visit 06/24/2016 4:15p [facility] Lobito Huertas M25.569 Pain in M., M.D. unspecified knee J44.9 Chronic obstructive pulmonary disease, unspecified M54.5 Low back pain M79.604 Pain in right leg F17.210 Nicotine dependence, cigarettes, uncomplicated M25.571 Pain in right ankle and joints of right foot L20.9 Atopic dermatitis, unspecified J30.9 Allergic rhinitis, unspecified R06.02 Shortness of breath H90.3 Sensorineural hearing loss, bilateral H52.4 Presbyopia E78.2 Mixed hyperlipidemia M54.2 Cervicalgia Office Visit 05/14/2016 4:15p [facility] Manjinder Miranda M25.569 Pain in BOND MANAGER unspecified knee J44.9 Chronic obstructive pulmonary disease, unspecified M54.5 Low back pain M79.604 Pain in right leg F17.210 Nicotine dependence, cigarettes, uncomplicated Office Visit 04/15/2016 9:45a [facility] Lobito Huertas M25.569 Pain in M., M.D. unspecified knee J44.9 Chronic obstructive pulmonary disease, unspecified M54.5 Low back pain M79.604 Pain in right leg M25.571 Pain in right ankle and joints of right foot L20.9 Atopic dermatitis, unspecified J30.9 Allergic rhinitis, unspecified R06.02 Shortness of breath F17.210 Nicotine dependence, cigarettes, uncomplicated H90.3 Sensorineural hearing loss, bilateral H52.4 Presbyopia E78.2 Mixed hyperlipidemia M54.2 Cervicalgia S60.451A Superficial foreign body of left index finger, init encntr Office Visit 03/07/2016 4:30p [facility] Edgardo Huertasmike M25.569 Pain in M., M.D. unspecified knee J44.9 Chronic obstructive pulmonary disease, unspecified M54.5 Low back pain M79.604 Pain in right leg M25.571 Pain in right ankle and joints of right foot L20.9 Atopic dermatitis, unspecified J30.9 Allergic rhinitis, unspecified R06.02 Shortness of breath F17.210 Nicotine dependence, cigarettes, uncomplicated H90.3 Sensorineural hearing loss, bilateral H52.4 Presbyopia E78.2 Mixed hyperlipidemia M54.2 Cervicalgia Office Visit 02/01/2016 2:45p [facility] AleksandarDavidnhd M25.569 Pain in M., M.D. unspecified knee J44.9 Chronic obstructive pulmonary disease, unspecified M54.5 Low back pain M79.604 Pain in right leg M25.571 Pain in right ankle and joints of right foot L20.9 Atopic dermatitis, unspecified J30.9 Allergic rhinitis, unspecified R06.02 Shortness of breath F17.210 Nicotine dependence, cigarettes, uncomplicated H90.3 Sensorineural hearing loss, bilateral H52.4 Presbyopia E78.2 Mixed hyperlipidemia Office Visit 01/01/2016 4:45p [facility] AleksandarDavidnhd M25.569 Pain in M., M.D. unspecified knee J44.9 Chronic obstructive pulmonary disease, unspecified M54.5 Low back pain M79.604 Pain in right leg M25.571 Pain in right ankle and joints of right foot L20.9 Atopic dermatitis, unspecified J30.9 Allergic rhinitis, unspecified R06.02 Shortness of breath F17.210 Nicotine dependence, cigarettes, uncomplicated H90.3 Sensorineural hearing loss, bilateral H52.4 Presbyopia E78.2 Mixed hyperlipidemia Office Visit 10/18/2015 2:45p [facility] AleksandarDavidnhd M25.569 Pain in M., M.D. unspecified knee J44.9 Chronic obstructive pulmonary disease, unspecified M54.5 Low back pain M79.604 Pain in right leg M25.571 Pain in right ankle and joints of right foot L20.9 Atopic dermatitis, unspecified J30.9 Allergic rhinitis, unspecified R06.02 Shortness of breath F17.210 Nicotine dependence, cigarettes, uncomplicated H90.3 Sensorineural hearing loss, bilateral H52.4 Presbyopia E78.2 Mixed hyperlipidemia Office Visit 08/31/2015 3:00p [facility] Lobito Huertas J44.9 Keegan obstructive Jules Villegas pulmonary disease, unspecified M54.5 Low back pain M79.604 Pain in right leg M25.569 Pain in unspecified knee M25.571 Pain in right ankle and joints of right foot L20.9 Atopic dermatitis, unspecified J30.9 Allergic rhinitis, unspecified R06.02 Shortness of breath F17.210 Nicotine dependence, cigarettes, uncomplicated H90.3 Sensorineural hearing loss, bilateral H52.4 Presbyopia E78.2 Mixed hyperlipidemia L03.012 Cellulitis of left finger Office Visit 07/23/2015 4:30p [facility] Lobito Huertas J44.9 Chronic obstructive Jules Villegas pulmonary disease, unspecified M54.5 Low back pain M79.604 Pain in right leg M25.569 Pain in unspecified knee M25.571 Pain in right ankle and joints of right foot L20.9 Atopic dermatitis, unspecified J30.9 Allergic rhinitis, unspecified R06.02 Shortness of breath F17.210 Nicotine dependence, cigarettes, uncomplicated H90.3 Sensorineural hearing loss, bilateral H52.4 Presbyopia E78.2 Mixed hyperlipidemia L03.012 Cellulitis of left finger Office Visit 07/10/2015 2:00p [facility] Lobito Huertas Z00.01 Encounter for Jules Villegas general adult medical exam w abnormal findings J44.9 Chronic obstructive pulmonary disease, unspecified M54.5 Low back pain M79.604 Pain in right leg M25.569 Pain in unspecified knee M25.571 Pain in right ankle and joints of right foot H52.4 Presbyopia L20.9 Atopic dermatitis, unspecified J30.9 Allergic rhinitis, unspecified R06.02 Shortness of breath F17.210 Nicotine dependence, cigarettes, uncomplicated Z68.26 Body mass index (BMI) 26.0-26.9, adult H90.3 Sensorineural hearing loss, bilateral Plan of Treatment 04/15/2018 - Lobito Huertas M.D.E78.2 Mixed hyperlipidemiaComments:DIET REVIEWED CONTINUE DIETWT LOSSF/U LAB FBWFollow up:1 yadytV14.9 Chronic obstructive pulmonary disease, unspecifiedComments:INCREASE PO FLUIDRESTSMOKING CESSATION COUNCELLING NEB OR MDI AND /OR QKLOIAH38.9 Atopic dermatitis, unspecifiedComments:SKIN CARE INSTRUCTIONS LOTION OR BABY OIL 2-3 APPLICATION PER DAYUSE MOISTURIZING SOAPAVOID PROLONGED WATER EXPOSUREAVOID USING HOT WATER IN FXKTGFI65.9 Allergic rhinitis, unspecifiedComments:INCREASE PO FLUID USE ANTIHISTAMINE PRN SECOND HAND SMOKING AVOIDANCE SMOKING [id number] Other cervical disc degeneration, unspecified cervical regioComments: CASE ( HAD MRI DONE @ [facility]- AND DX WITH REDICULOPATHY AND SAW DR MERRITT AND OFFERED SURGERY BUT PT DECLINED)M54.12 Radiculopathy, cervical regionComments: CASEM54.5 Low back painComments:EXERCISE/HEAT /MESSAGEAVOID HEAVY LIFTING WT LOSSTYLENOL OR MOTRIN PRN DUR FABFJJJA51.604 Pain in right legComments: TYLENOL OR MOTRIN PRN EXERCISE/HEAT/MESSAGE DUR GWKMKOXM59.571 Pain in right ankle and joints of right footComments:EXERCISE/HEAT/MESSAGETYLENOL OR MOTRIN PRNACE WRAP PRN USE SHOES INSERTS/ TZQAWCHI69.210 Nicotine dependence, cigarettes, uncomplicatedComments:SMOKING CESSATION [id number] Sensorineural hearing loss, bilateralComments:OBSERVE SMOKING IQQGJXRKOT09.4 PresbyopiaComments:USE GLASSES/CONTACTSF/U WITH WEGMYYLXXCOMBA79.9 Male erectile dysfunction, unspecifiedComments:COUNCELLING AND AZALCQWPD35.891 middle or intermediate school principal (current) use of opiate analgesicComments:REVIEWED MEDICATIONS AND DIRECTIONS WITH PATIENT DUR KYFRTIZZ93.9 Vitamin D deficiency, unspecifiedComments:INCREASE EXPOSURE TO SUNREVIEW OF DIETZ00.01 Encounter for general adult medical examination with abnormal findingsComments:GOOD NUTRITION /EXERCISEDENTAL/ FLOSSING/ SELF CAREDROWNING/ SUN SAFETYSEAT BELT/ DRIVING SAFETYSPORT BIKE/ HELMET USESPORTS/ INJURY PREVENTIONVIOLENCE PREVENTION/ GUN SAFETYPARENTING ADVICE"SAFE AT HOME"SEX EDUCATION/ COUNSELINGBREAST/ TESTICULAR SELF EXAMEDUCATION GOALS/ ACTIVITIESLIMIT TV/ INTERNETUSETOBACCO/ ALCOHOL/ DRUGS / INHALANTSPEER REFUSAL SKILLSSOCIAL INTERACTIONFAMILY FUNCTIONINGSELF CONTROLDEPRESSION/ ANXIETYNEXT APPOINTMENTYEARLY PHYSICAL WELLNESS EVALUATION
[2018-04-25 16:37] VITALS: BP 113/70
[2018-04-25] MEDS ORDERED: Albuterol/Ipratropium NEB.SOL* Albuterol 2.5 MG/Ipratropium 0.5 MG 3 ML INH ONE (16:48)
[2018-04-25] MEDS ORDERED: Albuterol 2.5 MG/3 ML NEB.SOL* (0.083%) INH ONE (16:51)
--- NOTE | 2018-04-25 17:29 | RAD ---
HISTORY: cough, sob COMPARISONS: November 21, 2015 VIEWS: 4: Frontal dual-energy and lateral views of the chest. FINDINGS: CARDIOMEDIASTINAL SILHOUETTE: The cardiomediastinal silhouette is normal. TURNER: The turner are normal. PLEURA: The costophrenic angles are sharp. No pleural abnormalities are noted. LUNG PARENCHYMA: There is hyperinflation with flattening of the diaphragm and expansion of the AP diameter of the chest. ABDOMEN: The upper abdomen is clear. There is no subphrenic gas. BONES AND SOFT TISSUES: Degenerative changes are noted along the spine. OTHER: None. IMPRESSION: HYPERINFLATION, CONSISTENT WITH COPD. NO ACTIVE CARDIOPULMONARY DISEASE.
--- NOTE | 2018-04-25 17:31 | UC ---
Respiratory Complaint HPI - HPI Summary HPI Summary: Pt c/o gradual onset of cough, chest congestion, malaise, wheezing and sob breath. Pt states cough is worse at night. - History of Current Complaint Chief Complaint: UCGeneralIllness Stated Complaint: COUGH Time Seen by Provider: 04/25/18 16:43 Hx Obtained From: Patient Onset/Duration: Gradual Onset, Lasting Days, Still Present, Worse Since - onset Timing: Constant Severity Initially: Mild Severity Currently: Moderate Pain Intensity: 5 Pain Scale Used: 0-10 Numeric Character: Cough: Productive Aggravating Factors: Deep Breaths, Recumbent Position Alleviating Factors: Nothing Associated Signs And Symptoms: Positive: Chills, Wheezing, URI, Nasal Congestion - Risk Factors Pulmonary Embolism Risk Factors: Smoking Cardiac Risk Factors: Smoking Pseudomonas Risk Factors: Chronic Lung Disease Tuberculosis Risk Factors: Smoking - Allergies/Home Medications Allergies/Adverse Reactions: Allergies Allergy/AdvReac Type Severity Reaction Status Date / Time No Known Allergies Allergy Verified 04/25/18 16:27 Home Medications: Home Medications Acetaminophen [Extra Strength Non-Aspirin] 1,000 mg PO Q6H PRN 04/25/18 [ History Confirmed 04/25/18] Hydrocodone/Acetaminophen [Hydrocodone-Acetamin 10-325 mg] 1 tab PO BID PRN [History Confirmed 04/25/18] PMH/Surg Hx/FS Hx/Imm Hx Previously Healthy: Yes - Surgical History Surgical History: Yes Surgery Procedure, Year, and Place: left shoulder 2009, [facility] [place],. right knee/femur rodding 1981, , [facility]. APPENDECTOMY, 1977, [facility]. Left Index Finger Tumor Removed, 07/16/12, [facility] [place]. LEFT INDEX FINGER END REMOVED= 07/25/2013. LT KNEE SCOPE - Family History Known Family History: Positive: Hypertension, Diabetes - Social History Occupation: Employed Full-time Lives: With Family Alcohol Use: Rare Substance Use Type: None Smoking Status (MU): Heavy Every Day Tobacco Smoker Type: Cigarettes Amount Used/How Often: 1 PPD X 30 YEARS Have You Smoked in the Last Year: Yes - Pt is using Chantix When Did the Patient Quit Smoking/Using Tobacco: 07/2013 for 6-7 mos Review of Systems Constitutional: Fever, Chills, Fatigue Skin: Negative Eyes: Negative ENT: Sinus Congestion Respiratory: Shortness Of Breath, Cough Cardiovascular: Negative Gastrointestinal: Negative Genitourinary: Negative Motor: Negative Neurovascular: Negative Musculoskeletal: Negative Neurological: Negative Psychological: Negative Is Patient Immunocompromised?: No All Other Systems Reviewed And Are Negative: Yes Physical Exam Triage Information Reviewed: Yes Appearance: Ill-Appearing Vital Signs: Initial Vital Signs Temp 99.5 F 04/25/18 16:29 Pulse 76 04/25/18 16:29 Resp 24 04/25/18 16:29 BP 113/70 04/25/18 16:29 Pulse Ox 92 04/25/18 16:29 Vital Signs Reviewed: Yes Eye Exam: Normal ENT: Positive: Nasal congestion Dental Exam: Normal Neck exam: Normal Respiratory: Positive: Wheezing Cardiovascular Exam: Normal Musculoskeletal Exam: Normal Neurological Exam: Normal Psychological Exam: Normal Skin Exam: Normal UC Diagnostic Evaluation - Laboratory O2 Sat by Pulse Oximetry: 93 Diagnostic Studies Comment: IMPRESSION: HYPERINFLATION, CONSISTENT WITH COPD. NO ACTIVE CARDIOPULMONARY DISEASE. Respiratory Course/Dx - Differential Dx/Diagnosis Differential Diagnosis/HQI/PQRI: Bronchitis, Exacerbation Of COPD, Influenza Provider Diagnoses: pneumonia Discharge - Sign-Out/Discharge Documenting (check all that apply): Patient Departure All imaging exams completed and their final reports reviewed: Yes - Discharge Plan Condition: Stable Disposition: HOME Prescriptions: Albuterol HFA INHALER* [Ventolin HFA Inhaler*] 1 - 2 puff INH Q4H PRN #1 mdi PRN Reason: Sob/Wheezing Amoxicillin/Clavulanate TAB* [Augmentin TAB 500 mg*] 500 mg PO Q12H #20 tab Azithromycin TAB* [Zithromax TAB (Z-MARITZA) 250 mg #6 tabs] 2 tab PO .TODAY, THEN 1 DAILY #1 maritza predniSONE TAB* [Deltasone 10 MG TAB*] 30 mg PO DAILY #12 tab Patient Education Materials: Pneumonia (ED) Referrals: Lobito Huertas MD [Primary Care Provider] - If Needed - Billing Disposition and Condition Condition: STABLE Disposition: Home
== END 2018-04-25 17:29 | disposition home or self-care (01) ==
LOC: UCCORT 15:00
DX: J18.9 Pneumonia, unspecified organism (principal); F17.210 Nicotine dependence, cigarettes, uncomplicated
CPT/HCPCS: 71046; 99212; G0463

== ENCOUNTER 2019-03-06 04:55 | Emergency (ER) | payer BC ==
[2019-03-06] MEDS ORDERED: Ketorolac INJ* 30 MG/ML 1 ML VIAL IM ONE (05:07)
[2019-03-06] MEDS ORDERED: oxyCODONE/Acetamin 5/325 MG* TAB PO ONE (05:07)
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
[2019-03-06 06:07] VITALS: BP 140/89
== END 2019-03-06 06:05 | disposition home or self-care (01) ==
LOC: ED 04:55
DX: M75.31 Calcific tendinitis of right shoulder (principal); M19.011 Primary osteoarthritis, right shoulder; F17.210 Nicotine dependence, cigarettes, uncomplicated
CPT/HCPCS: 96372; 99282; A9270-GY; J1885